=== PATIENT | male | born 2005 | race Caucasian/White ===

== ENCOUNTER 2024-02-03 16:22 | Emergency (ER) | payer BC ==
[~2024-02-03] VITALS: Ht 177.8 cm; Wt 86.4 kg
[2024-02-03 16:27] VITALS: TEMP 98
[2024-02-03] MEDS ORDERED: Ketorolac 15 MG/ML VIAL IV ONE (17:45)
[2024-02-03] MEDS ORDERED: LORazepam 2 MG/ML 1 ML VIAL IV ONE (17:45)
[2024-02-03 18:11] LABS: BASO % 0.5 % (0.0-2.0); EOS # 0.2 K/mm3 (0.0-0.7); EOS % 3.7 % (0.0-4.0); GRAN % 60.2 % (42.2-75.2); HEMATOCRIT 48.4 % (42.0-52.0); HEMOGLOBIN 17.4 g/dl (13.5-18.0); LYMPH # 1.8 K/mm3 (1.2-3.4); LYMPH % 27.5 % (20.0-51.0); MEAN CELL VOLUME 83 fl (80.0-100.0); MEAN CORPUSCULAR HEMOGLOBIN 30 pg (27-31); MEAN CORPUSCULAR HGB CONC 36 g/dl (33.0-37.0); MEAN PLATELET VOLUME 10.8 fl (7.4-10.4); MONO # 0.5 K/mm3 (0.1-0.6); MONO % 7.8 % (1.7-9.3); PLATELET COUNT 200 K/mm3 (130-400); RED BLOOD COUNT 5.82 M/mm3 (4.20-5.60); REDCELL DISTRIBUTION WIDTH-CV 13.4 % (11.5-14.5)
[2024-02-03 18:28] LABS: ALANINE AMINOTRANSFERASE 17 U/L (0-55); ALBUMIN 4.5 g/dL (3.5-5.0); ALKALINE PHOSPHATASE 95 U/L (40-150); ANION GAP 11 mmol/L (7-16); AST,SGOT 19 U/L (5-34); BILIRUBIN,TOTAL 0.6 mg/dL (0.2-1.2); BLOOD UREA NITROGEN 18 mg/dL (9-21); CALCIUM 9.9 mg/dL (8.4-10.2); CHLORIDE 108 mEq/L (98-107); CREATININE, serum 1.16 mg/dL (0.72-1.25); GLUCOSE 90 mg/dL (70-99); LIPASE 21 U/L (8-78); SODIUM 142 mEq/L (136-145); TOTAL PROTEIN 7.4 g/dl (6.2-8.1)
[2024-02-03 18:38] LABS: TROPONIN-I < 0.010 ng/mL (0.00-0.033)
[2024-02-03] MEDS ORDERED: MEDROL 4MG DOSPA4 MG PO (19:01)
[2024-02-03 19:15] VITALS: BP 124/71; PULSE 64
== END 2024-02-03 19:30 | disposition home or self-care (01) ==
LOC: COL.ER 16:22
PROVIDERS: Nurse Practitioner
DX: R07.89 Other chest pain (principal); F17.290 Nicotine dependence, other tobacco product, uncomplicated
CPT/HCPCS: J1885; J2060